=== PATIENT | male | born 1995 | race Caucasian/White ===

== ENCOUNTER → 2017-07-21 | Outpatient (CLI) | payer OTHER ==
[2017-07-21 17:55] LABS: BASO % 0.3 %; BASO ABS # 0.02 K/uL (0-0.2); EOS % 5.2 %; EOS ABS # 0.33 K/uL (0-0.5); HEMATOCRIT 44.6 % (42-52); HEMOGLOBIN 15.6 g/dL (14.0-18.0); IG# 0.01 K/uL (0.00-0.02); LYMPH % 29.3 %; LYMPH ABS # 1.85 K/uL (1.2-3.4); MEAN CELL VOLUME 87.6 fL (80-100); MEAN CORPUSCULAR HEMOGLOBIN 30.6 pg (25-34); MEAN PLATELET VOLUME 9.5 fL (7.4-10.4); MONO % 8.9 %; MONO ABS # 0.56 K/uL (0.11-0.59); NEUT % 56.1 %; NEUT ABS # 3.55 K/uL (1.4-6.5); PLATELET COUNT 294 K/uL (130-400); RED CELL DISTRIBUTION WIDTH CV 12.6 % (11.5-14.5); RED CELL DISTRIBUTION WIDTH SD 40.5 fL (36.4-46.3); WHITE BLOOD COUNT 6.32 K/uL (4.8-10.8)
[2017-07-21 18:14] LABS: BLOOD UREA NITROGEN 10 mg/dl (7-18); CALCIUM 9.5 mg/dl (8.5-10.1); CARBON DIOXIDE 30 mmol/L (21-32); CREATININE 0.87 mg/dl (0.60-1.40); GLUCOSE 83 mg/dl (70-99); POTASSIUM 3.9 mmol/L (3.5-5.1); SODIUM 137 mmol/L (136-145)
[2017-07-21 18:32] LABS: MONOSPOT NEG (NEG)
[2017-07-23 13:56] LABS: EBV EARLY ANTIGEN AB < 9.00 U/ML
== END | disposition home or self-care (01) ==
LOC: EDBD 13:03 → C.LABPBG 13:03
PROVIDERS: ATTEND Physician Assistant
DX: R53.83 Other fatigue (principal); Z11.3 Encounter for screening for infections with a predominantly sexual mode of transmission; Z13.21 Encounter for screening for nutritional disorder; Z72.51 High risk heterosexual behavior